=== PATIENT | male | born 1960 | race Two or more races ===

== ENCOUNTER 2020-01-12 09:22 | Emergency (ER) | payer MEDICAID, OTHER ==
[~2020-01-12] VITALS: Ht 157.5 cm; Wt 81.6 kg
[2020-01-12] MEDS ORDERED: SODIUM CHLORIDE 0.9% 500 ML IV ONE (10:30)
[2020-01-12] MEDS ORDERED: SODIUM CHLORIDE 0.9% 1,000 ML IV ONE (10:30)
[2020-01-12] MEDS ORDERED: cefTRIAXone 1GM/50ML D5W 50 ML IV ONE (10:30)
[2020-01-12 10:47] LABS: Basophils # (auto) 0 10 ^3/uL (0-0.2); Basophils % (auto) 0.4 % (0.0-2.0); Eosinophils # (auto) 0.3 10 ^3/uL (0-0.8); Eosinophils % (auto) 3.3 % (0.0-7.0); Hemoglobin 15.7 g/dL (13.5-17.5); Lymphocytes # (auto) 2.4 10 ^3/uL (0.4-5.4); Mean Corpuscular Hemoglobin 27.9 pg (28.0-32.0); Mean Corpuscular Hgb Conc. 34.2 g/dL (32.0-36.0); Mean Corpuscular Volume 81.6 fL (80.0-100.0); Monocytes # (auto) 0.5 10 ^3/uL (0-1.3); Monocytes % (auto) 5.1 % (0.0-12.0); Neutrophils # (auto) 6.7 10 ^3/uL (1.6-8.6); Neutrophils % (auto) 67.2 % (37.0-80.0); Nucleated Red Blood Cells % 0.1 %; Platelet Count (auto) 178 10^3/uL (140-450); Red Blood Cells 5.63 10^6/uL (4.5-5.90); Red Cell Distribution Width 13.2 % (11.8-14.3); White Blood Cell 9.9 10^3/uL (4.4-10.8)
[2020-01-12 11:23] LABS: BUN/Creatinine Ratio 13.3; Calcium 8.7 mg/dL (8.5-10.1)
[2020-01-12 12:50] LABS: Urine WBC None Seen /hpf (0 - 3)
[2020-01-12 13:00] VITALS: BP 150/95
[2020-01-12 13:00] LABS: Urine Bacteria NONE SEEN /hpf (None Seen); Urine Blood Negative /uL (Negative)
== END 2020-01-12 13:12 | disposition home or self-care (01) ==
LOC: ER 09:22
DX: N48.1 Balanitis (principal); Z20.2 Contact with and (suspected) exposure to infections with a predominantly sexual mode of transmission; B37.49 Other urogenital candidiasis; E11.65 Type 2 diabetes mellitus with hyperglycemia; I10 Essential (primary) hypertension
CPT/HCPCS: 36415; 80048; 81001; 83735; 85025; 87491; 87591; 96365; 99284; J0696; 81002